=== PATIENT | female | born 1990 | race Two or more races ===

== ENCOUNTER 2017-06-25 00:26 | Emergency (ER) | payer OTHER ==
[2017-06-25 00:52] VITALS: BP 172/120
--- NOTE | 2017-06-25 01:58 | XRAY Report ---
EXAM: RIGHT FOOT RADIOGRAPHY EXAM DATE: 06/25/2017 01:25 AM. CLINICAL HISTORY: Pain after injury. COMPARISON: None. TECHNIQUE: 3 views. FINDINGS: Bones: No acute fracture seen. Joints: No dislocation. Joint spaces appear intact. Soft Tissues: Mild soft tissue swelling. IMPRESSION: 1. No acute fracture or dislocation seen. [facility] Referring Provider Line: [phone] SITE ID: [id number]
--- NOTE | 2017-06-25 01:58 | XRAY Preliminary Report ---
Exam: XR FOOT 3 VIEW RT IMPRESSION: 1. No acute fracture or dislocation seen. [facility] SITE ID: [id number]
--- NOTE | 2017-06-25 02:12 | ED Physician Documentation ---
PD HPI LOWER EXT INJURY - Stated complaint Stated Complaint: RT FOOT PAIN - Chief complaint Chief Complaint: Ext Problem - History obtained from History obtained from: Patient, Family - History of Present Illness PD HPI LOW EXT INJURY LOCATION: Right, Foot, Toe Type of injury: Blunt / blow Where injury occurred: Home Timing - onset: Today Timing - details: Abrupt onset Worsened by: Moving, Palpating Associated symptoms: Swelling Contributing factors: No: Anticoagulated, Prior ortho surgery Similar symptoms before: Has not had sx before Recently seen: Not recently seen - Additional information Additional information: Patient is a 27 year old female who is presenting to the emergency department for toe pain. Patient states that she tripped on some toes and stubbed her 4th and 5th digits on a metal bin. Review of Systems Ten Systems: 10 systems reviewed and negative Musculoskeletal: reports: Extremity pain, Joint pain, Extremity swelling, Joint swelling PD PAST MEDICAL HISTORY - Allergies Allergies/Adverse Reactions: Allergies Allergy/AdvReac Type Severity Reaction Status Date / Time No Known Drug Allergies Allergy Verified 06/25/17 00:35 PD ED PE NORMAL - Vitals Vital signs reviewed: Yes - General General: Alert and oriented X 3, No acute distress - HEENT HEENT: Atraumatic, PERRL - Cardiac Cardiac: RRR - Respiratory Respiratory: No respiratory distress - Abdomen Abdomen: Soft, Non tender, Non distended - Derm Derm: Normal color - Neuro Neuro: Alert and oriented X 3, No motor deficit Eye Opening: Spontaneous Motor: Obeys Commands Verbal: Oriented GCS Score: 15 - Psych Psych: Normal mood PD ED PE EXPANDED - Extremities Extremities: Right toe(s) (mild tenderness to palpation of right 4th and 5th digits.) Results - Vitals Vitals: Vital Signs - 24 hr 06/25/17 00:33 Temperature 36.2 C L Heart Rate 91 Respiratory 16 Rate Blood Pressure 172/120 H O2 Saturation 98 Oxygen O2 Source Room air - Rads (name of study) right foot x-ray Radiology: Final report received (no acute fracture or dislocation) PD MEDICAL DECISION MAKING - ED course Complexity details: reviewed old records, reviewed results, re-evaluated patient , considered differential, d/w patient, d/w family ED course: Patient was seen and examined at bedside. Patient had already been sent to imaging. There was no acute fracture or dislocation. Patient required no further work up and was stable for discharge with outpatient follow up. Departure - Departure Disposition: 01 Home, Self Care Clinical Impression: Contusion of toe of right foot Condition: Good Instructions: ED Contusion Lower Ext Follow-Up: primary,care provider [Other] - As Needed Comments: Your diagnostics today were within normal limits. There is no acute fracture or dislocation. You should ice your foot and take motrin or tylenol as needed for pain. You should follow up with your doctor if your symptoms persist. You may return to the emergency department at any time for new, worsening or uncontrollable symptoms.
== END 2017-06-25 02:26 | disposition home or self-care (01) ==
LOC: ED 00:26 → EDBD 00:26 → ED 02:26
DX: S90.121A Contusion of right lesser toe(s) without damage to nail, initial encounter (principal); W22.09XA Striking against other stationary object, initial encounter; Y93.01 Activity, walking, marching and hiking; Y92.009 Unspecified place in unspecified non-institutional (private) residence as the place of occurrence of the external cause
CPT/HCPCS: 99282